=== PATIENT | female | born 1980 | race Caucasian/White ===

== ENCOUNTER 2021-01-20 09:13 | Inpatient (IN) ==
[~2021-01-20 09:13] MED LIST: Methylergonovine 0.2 MG/ML AMPUL IM ONE; miSOPROStoL 100 MCG TABLET RC ONE
[2021-01-20] MEDS ORDERED: Oxytocin 20 units/ LR 1000 mL 20 UNIT/1,000 ML BAG IVC SCH (12:15)
[2021-01-20] MEDS ORDERED: Azithromycin 500 MG in 0.9 % Sodium Chloride 250 ML IVPB PRN (12:15)
[2021-01-20] MEDS ORDERED: Metoclopramide 10 MG/2 ML VIAL IVP PRN (12:15)
[2021-01-20] MEDS ORDERED: Famotidine 20 MG/2 ML VIAL IVP PRN (12:15)
[2021-01-20] MEDS ORDERED: Naloxone 0.4 MG/ML INJ IVP PRN (12:15)
[2021-01-20] MEDS ORDERED: *HR* Nalbuphine 10 MG/ML AMPUL IV PRN (12:15)
[2021-01-20] MEDS ORDERED: Ondansetron 4 MG/2 ML VIAL IVP PRN (12:15)
[2021-01-20] MEDS ORDERED: Ringers Solution, Lactated 1,000 ML IVC SCH (12:15)
[2021-01-20 13:11] LABS: Basophils % 0.2 %; Eosinophils % 0.2 %; Hematocrit 31.6 % (35.3-44.9); Hemoglobin 10.8 g/dL (11.5-15.4); Immature Granulocytes % 0.4 % (0-4); Lymphocytes # 1.4 K/mcL (0.6-4.6); Lymphocytes % 14.9 %; Mean Corpuscular HGB Conc 34.2 g/dL (31.6-35.5); Mean Corpuscular Hemoglobin 32.1 pg (28.0-33.3); Mean Platelet Volume 10.5 fL (9.4-12.4); Monocytes # 0.5 K/mcL (0.0-1.3); Monocytes % 5.1 %; Neutrophils # 7.3 K/mcL (1.6-8.9); Platelet Count 155 K/mcL (140-400); Red Blood Count 3.36 M/mcL (3.82-4.97); Red Cell Distribution Width 12.3 % (11.5-14.5); Segmented Neutrophils % 79.2 %; White Blood Count 9.3 K/mcL (4.3-11.1)
[2021-01-20 13:48] LABS: Amphetamine Screen,Urine Negative ng/mL (Cutoff=1000); Barbiturate Screen,Urine Negative ng/mL (Cutoff=200); Benzodiazepines Screen,Urine Negative ng/mL (Cutoff=200); Cannabinoid Screen,Urine Negative ng/mL (Cutoff = 50); Cocaine Screen,Urine Negative ng/mL (Cutoff= 300); Opiate Screen,Urine Negative ng/mL (Cutoff=300); Phencyclidine Screen,Urine Negative ng/mL (Cutoff=25)
[2021-01-20] MEDS ORDERED: *HR* FentaNYL (PF) 100 MCG/2 ML VIAL EP ONE (16:15)
[2021-01-20] MEDS ORDERED: Ropivacaine/PF 0.2% 20 ML VIAL EP ONE (16:15)
[2021-01-20] MEDS ORDERED: EPHEDrine 50 MG/ML VIAL IVP PRN (16:15)
[2021-01-20] MEDS ORDERED: Epidural Premix (fent/bupiv) 110 ML EP SCH (16:15)
[2021-01-20] MEDS ORDERED: *HR* FentaNYL (PF) 100 MCG/2 ML VIAL ONE ×2 (16:18→18:57)
[2021-01-20] MEDS ORDERED: Ropivacaine/PF 0.2% 20 ML VIAL ONE (16:18)
[2021-01-20] MEDS ORDERED: *HR* Morphine Sulfate/PF 10 MG/10 ML AMPUL ONE (18:56)
[2021-01-20] MEDS ORDERED: *HR* Succinylcholine 200 MG/10 ML VIAL IVP ONE ×2 (19:19→21:23)
[2021-01-20] MEDS ORDERED: *HR* Propofol 200 MG/20 ML VIAL IVP ONE (19:19)
[2021-01-20] MEDS ORDERED: Lidocaine -MPF 2% 5 ML VIAL ONE (19:19)
[2021-01-20] MEDS ORDERED: Dexamethasone 4 MG/ML VIAL ONE (19:36)
[2021-01-20] MEDS ORDERED: Ondansetron 4 MG/2 ML VIAL ONE (19:36)
[2021-01-20] MEDS ORDERED: Acetaminophen IV 1,000 MG/100 ML BAG IVPB ONE (19:42)
[2021-01-20] MEDS ORDERED: *HR* Phenylephrine 10 MG/ML VIAL ONE ×2 (19:47→21:19)
[2021-01-20] MEDS ORDERED: Ketorolac 30 MG/ML VIAL ONE (20:08)
[2021-01-20] MEDS ORDERED: Oxytocin 20 units/ LR 1000 mL 20 UNIT/1,000 ML BAG IVC ONE (20:29)
[2021-01-20] MEDS ORDERED: 0.9 % Sodium Chloride 2,000 ML ONE (21:03)
[2021-01-20] MEDS ORDERED: Heparin 1,000 UNITS/500 mL 500 ML ONE (21:06)
[2021-01-20 21:16] VITALS: BP 78/42
[2021-01-20] MEDS ORDERED: *HR* Etomidate 40 MG/20 ML VIAL IVP ONE (21:22)
[2021-01-20 21:33] LABS: Hematocrit 17.2 % (35.3-44.9)
[2021-01-20 21:36] LABS: Hemoglobin 5.8 g/dL (11.5-15.4)
[2021-01-20] MEDS ORDERED: Ringers Solution, Lactated 1,000 ML ONE (21:40)
[2021-01-20] MEDS ORDERED: Albumin Human 5% 12.5 GM/250 ML IV.SOLN IVPB ONE (21:41)
[2021-01-20] MEDS ORDERED: EPINEPHrine 1 MG/ML VIAL ONE (21:49)
[2021-01-20] MEDS ORDERED: Albumin Human 5% 12.5 GM/250 ML IV.SOLN IVC SCH (22:00)
[2021-01-20] MEDS ORDERED: 0.9 % Sodium Chloride 1,000 ML ONE (22:34)
[2021-01-20] MEDS ORDERED: *HR* Rocuronium Bromide 50 MG/5 ML VIAL ONE (22:50)
[2021-01-20 22:59] LABS: INR 1.3; Prothrombin Time 15.2 Seconds (9.4-12.1)
[2021-01-20] MEDS ORDERED: MetroNIDAZOLE 500 MG/100 ML 500 MG/100 ML BAG IVPB ONE (23:00)
[2021-01-20 23:02] LABS: Activated Partial Thrombo Time 23.3 Seconds (26.0-36.0)
[2021-01-20 23:25] LABS: Basophils # 0.1 K/mcL (0.0-0.2); Basophils % 0.3 %; Eosinophils % 0.1 %; Hematocrit 30.1 % (35.3-44.9); Hemoglobin 9.8 g/dL (11.5-15.4); Immature Granulocytes % 1.5 % (0-4); Lymphocytes # 1.9 K/mcL (0.6-4.6); Lymphocytes % 12.5 %; Mean Corpuscular HGB Conc 32.6 g/dL (31.6-35.5); Mean Corpuscular Hemoglobin 31.9 pg (28.0-33.3); Monocytes # 0.5 K/mcL (0.0-1.3); Monocytes % 3.1 %; Neutrophils # 12.6 K/mcL (1.6-8.9); Red Blood Count 3.07 M/mcL (3.82-4.97); Red Cell Distribution Width 13.6 % (11.5-14.5); Segmented Neutrophils % 82.5 %; White Blood Count 15.3 K/mcL (4.3-11.1)
[2021-01-20 23:27] LABS: Platelet Count 11 K/mcL (140-400)
[2021-01-20 23:46] LABS: Platelet Estimate Marked Decrease (Normal)
[2021-01-21 00:43] LABS: Red Cell Distribution Width 15.2 % (11.5-14.5)
[2021-01-21 00:45] LABS: Basophils # 0.1 K/mcL (0.0-0.2); Basophils % 0.3 %; Eosinophils % 0.1 %; Hematocrit 33.4 % (35.3-44.9); Immature Platelets 5.5 % (1.1-6.1); Lymphocytes # 1.3 K/mcL (0.6-4.6); Lymphocytes % 8.1 %; Mean Corpuscular HGB Conc 32.9 g/dL (31.6-35.5); Mean Corpuscular Hemoglobin 29.7 pg (28.0-33.3); Mean Corpuscular Volume 90.3 fL (83.0-100.0); Mean Platelet Volume 10.8 fL (9.4-12.4); Monocytes % 6.1 %; Platelet Count 53 K/mcL (140-400); Segmented Neutrophils % 83.4 %; White Blood Count 15.6 K/mcL (4.3-11.1)
[2021-01-21 00:55] LABS: INR 1.2; Prothrombin Time 13.5 Seconds (9.4-12.1)
[2021-01-21 01:01] LABS: Basophils % 0.1 %; Mean Corpuscular Hemoglobin 29.9 pg (28.0-33.3); Monocytes % 5.8 %; Red Blood Count 3.14 M/mcL (3.82-4.97); Red Cell Distribution Width 15.3 % (11.5-14.5)
[2021-01-21 01:01] LABS: Activated Partial Thrombo Time 18.8 Seconds (26.0-36.0)
[2021-01-21 01:03] LABS: Eosinophils % 0.1 %; Hematocrit 27.8 % (35.3-44.9); Hemoglobin 9.4 g/dL (11.5-15.4); Immature Granulocytes % 1.6 % (0-4); Immature Platelets 4.7 % (1.1-6.1); Lymphocytes # 0.9 K/mcL (0.6-4.6); Lymphocytes % 6.3 %; Mean Corpuscular HGB Conc 33.8 g/dL (31.6-35.5); Mean Corpuscular Volume 88.5 fL (83.0-100.0); Mean Platelet Volume 9.9 fL (9.4-12.4); Monocytes # 0.9 K/mcL (0.0-1.3); Neutrophils # 12.7 K/mcL (1.6-8.9); Platelet Count 79 K/mcL (140-400); Segmented Neutrophils % 86.1 %; White Blood Count 14.8 K/mcL (4.3-11.1)
[2021-01-21] MEDS ORDERED: *HR* Rocuronium Bromide 50 MG/5 ML VIAL ONE (01:15)
[2021-01-21 01:28] LABS: Platelet Estimate Decreased (Normal)
== END 2021-01-21 01:07 | disposition short-term general hospital (02) | DRG 783 ==
LOC: 1NENULAB
PROVIDERS: ADMIT Advanced Practice Midwife; ATTEND Advanced Practice Midwife